=== PATIENT | male | born 2000 | race Caucasian/White ===

== ENCOUNTER 2018-04-08 15:23 | Emergency (ER) | payer OTHER, SELFPAY ==
[2018-04-08 15:24] VITALS: BP 116/54; PULSE 61; RESP 14; TEMP 36.6; O2SAT 98; BMI 21.0
--- NOTE | 2018-04-08 15:35 | ED.VISSUMM ---
- ER Visit Summary Date of Service: 04/08/18 Chief Complaint: [Caterpillar bite/sting] History of Present Illness: The patient is a 17 M [presents to the emergency department with complaint of skin reaction on his left forearm from a caterpillar that had gotten on his left arm about 2 hours ago. Patient was at work putting on a vest when he noticed a green caterpillar on his forearm. He subsequently developed some redness, itching, and local swelling. Patient describes some lightheadedness and some nausea and a feeling of shakiness. Patient just wanted to make sure that he was good to be okay although the redness and swelling on his forearm has since resolved.] Physical Examination: [HEENT-PERRLA, EOMI. Cranial nerves II through XII grossly intact. TMs clear. Mucous membranes moist. No adenopathy. Cardiovascular-regular rate and rhythm without murmur or ectopy Lungs-clear to auscultation, chest wall stable without crepitus or subcu emphysema Abdomen-normoactive bowel sounds, soft, nontender, no rebound or rigidity, no peritoneal signs. Extremities-intact ?4, normal range of motion, normal pulses, atraumatic]. Left forearm-I do not appreciate any rash or bite wounds. There are no caterpillar hairs noted on the forearm at the location the patient is stating was the site of injury. Test Results: [None indicated] Emergency Department Course and Treatment: [None indicated] Treatment Plan: [Patient use Benadryl for itching and ice to the area for any discomfort.] Disposition: [Discharged home in stable condition] Impression: [Insect sting-local reaction] This note was generated with [employer] dictation software. It may contain incorrect words, spelling, and punctuation that were not noted in review of the chart prior to signing ED Disposition - Plan for ED Patient: Chief Complaint: Bite Referrals: NOT,DEFINED [Primary Care Provider] -
--- NOTE | 2018-04-08 15:36 | ED.DEP ---
ED Disposition - Plan for ED Patient: Chief Complaint: Bite Instructions: ED Bite Sting Insect Gen Allergic React Referrals: NOT,DEFINED [Primary Care Provider] - Fast,Elizabeth, DO [NON-STAFF] - As Needed
[2018-04-08 15:50] VITALS: RESP 16
--- NOTE | 2018-04-08 15:50 | ED.RN ---
REVIEWED D/C INSTRUCTIONS, FOLLOW UP CARE, AND S/S THAT WOULD WARRANT A RETURN TO THE ED WITH PT. PT VERBALIZED AN UNDERSTANDING AND DENIES FURTHER QUESTIONS FOR THIS RN. PT SKIN P/W/D, RESP EVEN AND UNLABORED, PT A&O X 3, NO DISTRESS NOTED. PT AMBULATED OUT OF ED, GAIT STEADY.
== END 2018-04-08 15:51 | disposition home or self-care (01) ==
LOC: ED 15:46
PROVIDERS: Emergency Provider Emergency Medicine
DX: T63.431A Toxic effect of venom of caterpillars, accidental (unintentional), initial encounter (principal); M79.89 Other specified soft tissue disorders; Y92.89 Other specified places as the place of occurrence of the external cause; Z72.0 Tobacco use
CPT/HCPCS: 99282